=== PATIENT | male | born 1980 | race Caucasian/White ===

== ENCOUNTER 2024-03-12 22:09 | Emergency (ER) | payer SELFPAY ==
[~2024-03-12] VITALS: Ht 172.7 cm; Wt 86.3 kg
[2024-03-12 22:18] VITALS: BP 143/100
[2024-03-12] MEDS ORDERED: SODIUM CHLORIDE 0.9% 1,000 ML IV ONE (22:30)
[2024-03-12] MEDS ORDERED: VANCOMYCIN HCL 1 GM in SODIUM CHLORIDE 0.9% 250 ML IV ONE (22:30)
[2024-03-12] MEDS ORDERED: KETOROLAC TROMETHAMINE 30 MG/ML SDV IV ONE (22:30)
[2024-03-12] MEDS ORDERED: CLINDAMYCIN PHOSPHATE 50 ML IV ONE (22:30)
[2024-03-12 22:46] VITALS: BP 148/103
[2024-03-12 22:48] LABS: BASO% 0.1 % (0-3); EOS% 1.3 % (0-8); HEMATOCRIT 40.5 % (39.0-50.0); HEMOGLOBIN 13.5 g/dl (14.0-18.0); IMMATURE GRANULOCYTES 0.4 % (0.0-5.0); LYMPH% 21.4 % (15-41); MEAN CELL VOLUME 96.2 fL CALC (80.0-100.0); MEAN CORPUSCULAR HGB 32.1 pG CALC (26.0-32.0); MEAN CORPUSCULAR HGB CONC 33.3 g/dL CAL (32.0-36.0); MONO% 10.1 % (2-13); NEUT# 7.32 thou/uL (1.82-7.42); NEUT% 66.7 % (42-76); RED BLOOD COUNT 4.21 mill/uL (4.70-6.10)
[2024-03-12 23:01] VITALS: BP 137/117
[2024-03-12 23:01] LABS: ALBUMIN 4.2 g/dL (3.2-5.0); BILIRUBIN, TOTAL 0.7 mg/dL (0.2-1.3); CREATININE 1.1 mg/dL (0.7-1.3); POTASSIUM 4.1 mmol/l (3.5-5.1); TOTAL PROTEIN 6.9 g/dL (6.3-8.2)
[2024-03-12 23:18] VITALS: BP 43/22
[2024-03-13 00:03] VITALS: BP 189/143
[2024-03-13] MEDS ORDERED: CLINDAMYCIN HC150 MG PO (00:10)
== END 2024-03-13 00:40 | disposition home or self-care (01) | DRG 603 ==
LOC: ED 22:09
PROVIDERS: Emergency Medicine
DX: L03.116 Cellulitis of left lower limb (principal); Z72.0 Tobacco use